=== PATIENT | male | born 1955 | race Caucasian/White ===

== ENCOUNTER 2017-09-11 21:11 | Emergency (ER) | payer OTHER ==
[2017-09-11] MEDS: HYDROCODONE/APAP (5/325) TAB PO (22:39)
[2017-09-11] MEDS: IBUPROFEN 600 MG TAB PO (22:39)
== END 2017-09-12 00:50 | disposition home or self-care (01) ==
LOC: FTE 09-12 00:50
DX: M25.562 Pain in left knee (principal); E11.9 Type 2 diabetes mellitus without complications; I10 Essential (primary) hypertension; M95.8 Other specified acquired deformities of musculoskeletal system; Z87.891 Personal history of nicotine dependence
CPT/HCPCS: 29505; 73562; 73590; 99283-25